=== PATIENT | male | born 1960 | race Caucasian/White ===

== ENCOUNTER 2021-12-03 09:32 | Emergency (ER) | payer BC ==
[2021-12-03] MEDS ORDERED: MORPHINE 4 MG/ML SYR ONE (09:58)
[2021-12-03] MEDS ORDERED: NA CHLORIDE 0.9% 1,000 ML ONE (09:58)
[2021-12-03] MEDS ORDERED: ONDANSETRON 4 MG/2 ML VIAL ONE (09:58)
[2021-12-03 10:20] LABS: Absolute Lymphocytes (CBC) 1.1 K/uL (0.7-4.9); Hematocrit 47.4 % (39.6-49.0); Lymphocytes % 34.8 % (15.3-44.8); MCV 83.8 fL (80-100); MPV 7.9 fL (7.6-11.3); RBC Red Blood Cell Count 5.65 M/uL (4.33-5.43)
[2021-12-03 10:23] LABS: SARS-CoV-2 Antigen Rapid Res Negative (Negative)
[2021-12-03 10:35] LABS: Albumin 3.9 g/dL (3.4-5.0); Bilirubin Total 0.4 mg/dL (0.2-1.0); Potassium 3.9 mmol/L (3.5-5.1); Protein, Total 7.1 g/dL (6.4-8.2)
[2021-12-03 10:52] LABS: Urine Blood Negative (Negative); Urine Glucose Negative (Negative); Urine Protein Negative (Negative)
[2021-12-03 11:12] LABS: Urine Bacteria None Seen /HPF (<20); Urine RBC <5 /HPF (None Seen)
--- NOTE | 2021-12-03 11:12 | RAD REPORT ---
EXAM DESCRIPTION: CT - Abdomen Pelvis W Contrast - 12/03/2021 10:56 am CLINICAL HISTORY: Abdominal pain, acute, nonlocalized COMPARISON: No comparisons TECHNIQUE: Biphasic, helical CT imaging of the abdomen and pelvis was performed following 100 ml non -ionic IV contrast. No oral contrast was administered. All CT scans are performed using dose optimization technique as appropriate and may include automated exposure control or mA/KV adjustment according to patient size. FINDINGS: No suspicious findings in the lung bases. The liver, spleen, and pancreas show no suspicious findings. Gallbladder and biliary tree are also wi thout suspicious finding. Symmetric renal function is seen with no hydronephrosis or suspicious renal mass. No pyelonephritis o r acute parenchymal process. No bladder abnormalities. No adrenal abnormalities. Minimal thickening of the distal most esophagus possibly part of a minimal hiatal hernia. No gastric wall thickening, edema or mass. No acute small bowel finding identified. No appendicitis findings are present. There is a large stool volume distending the colon. This runs from cecum to distal rectum. No colon mass identified. No free air, free fluid or inflammatory stranding. No hernia, mass or bulky lymphadenopathy. No suspicious bony findings. IMPRESSION: Constipation pattern with a large stool volume distending the entirety of the colon. No colon wall mass, wall thickening or edema. Remainder the study, as detailed above, without acute or suspicious finding.
--- OUTSIDE RECORDS SUMMARY | 2021-12-03 11:32 | XMS REPORT | Continuity of Care Document ---
:1960 Author Organization [facility] t Address [address] [place] [address] [address] [place] [address] Care Team Providers Name Role Phone Wellington Aly Jr. Primary Care Physician Only, Ang Db Test Attending Clinician Unavailable Makeda Daigle Attending Clinician MAKEDA DAMIAN Attending Clinician Unavailable Lab, Adc Fam Pob I Attending Clinician Unavailable Elizabeth Moreira Attending Clinician ELIZABETH MELARA Attending Clinician Unavailable Payers Payer Name Policy Type Policy Effective Date Expiration Date Sour ce Number [facility] [id number] [facility] [id number] [phone] [id number], [place] [address]XOB/POS Problems This patient has no known problems. Allergies, Adverse Reactions, Alerts Allergy Allergy Status Severity Reaction(s) Onset Inactive Treating Comm ents Source Name Type Date Date Clinician NO KNOWN Drug Active Univers ALLERGIE Class ity of [facility] Social History Social Habit Start Date Stop Date Quantity Comments Source Exposure to Not sure [facility] SARS-CoV-2 (event) [facility] Sex Assigned At [birth year] [facility] 00:00:00 00:00:00 [facility] Smoking Status Start Date Stop Date Source Unknown if ever smoked General acute hospital Medications This patient has no known medications. Procedures This patient has no known procedures. Encounters Start End Encounter Admission Attending Care Care Encounter Source Date/Time Date/Time Type Type Clinicians Facility Department ID 2021-01-01 2021-01-01 Laboratory Only, Ang Db Test [facility] [[email or web address] 1.2.8 [id number] [facility] 10:49:33 10:59:33 Only Makeda [facility] [id number] ity of [place] [id number] Girma as Gerardo?Blea [phone] Mt dical kney [address] [facility] 2021-01-01 2021-01-01 Outpatient R [facility] [id number] Univers 10:45:00 10:45:00 [id number] [facility] 2021-01-01 2021-01-01 [facility] [id number] Univers 10:45:00 10:45:00 [facility] 2020-07-25 2020-07-25 Laboratory Lab, Adc Fam Pob I [facility] [[email or web address] 1.2. [id number] Univers 14:47:00 15:07:00 Only Elizabeth [facility] [id number] [facility]y of [place] [id number] Girma as Professio [phone] [facility] winnie becerra [address] [facility] 2020-07-25 2020-07-25 Outpatient R EDEN [facility] [id number] Univers 15:00:00 15:00:00 ELIZABETH [facility] 2020-07-24 2020-07-24 Outpatient [facility] [id number] Univers 15:00:00 15:00:00 [id number] [facility] Results This patient has no known results.
[2021-12-03] MEDS ORDERED: MAGNESIUM CITRATE 300 ML BOT ONE (12:03)
[2021-12-03 16:40] VITALS: TEMP 98.1
[2021-12-03 16:49] VITALS: BP 125/76; O2SAT 97
--- NOTE | 2021-12-04 10:13 | ER ---
Nurse's Notes [facility] Name: Deepak Blank Age: 61 yrs Sex: Male : 1960 Arrival Date: 12/03/2021 Time: 09:36 Bed 23 Private MD: Diagnosis: Constipation Presentation: 12/03 09:37 Chief complaint: Patient states: constipation, abdominal pain. Coronavirus screen: nance Vaccine status: Patient reports being unvaccinated. Ebola Screen: Patient denies travel to an Ebola-affected area in the 21 days before illness onset. Initial Sepsis Screen: Does the patient meet any 2 criteria? No. Patient's initial sepsis screen is negative. Does the patient have a suspected source of infection? No. Patient's initial sepsis screen is negative. Risk Assessment: Do you want to hurt yourself or someone else? Patient reports no desire to harm self or others. Onset of symptoms was December 02, 2021. 09:37 Method Of Arrival: EMS: [facility] 09:37 Acuity: JORDY 3 nance Triage Assessment: 09:39 General: Appears in no apparent distress. Behavior is calm, cooperative. Pain: nance Complains of pain in abdomen. Historical: - Allergies: 09:39 No Known Allergies; nance - Immunization history:: Adult Immunizations up to date. - Social history:: Smoking status: Patient denies any tobacco usage or history of. Screenin:40 Abuse screen: Denies threats or abuse. Denies injuries from another. Nutritional nance screening: No deficits noted. Tuberculosis screening: No symptoms or risk factors identified. Fall Risk None identified. Assessment: 09:39 General: Appears in no apparent distress. Behavior is calm, cooperative. Pain: nance Complains of pain in abdomen. GI: Bowel sounds diminished in right lower quadrant and left lower quadrant Abdomen is tender to palpation X 4 quads. Guarding noted X 4 quads. Reports constipation, Pain is 9 out of 10 on a pain scale. Vital Signs: 09:37 BP 186 / 89; Pulse 70; Resp 19; Temp 98.1; Pulse Ox 100% ; Weight 72.57 kg; Height 5 nance ft. 10 in. (177.80 cm); 11:41 BP 135 / 85; Pulse 62; Resp 17; Pulse Ox 98% on R/A; nance 13:50 BP 125 / 76; Pulse 60; Resp 17; Pulse Ox 97% on R/A; nance 09:37 Body Mass Index 22.96 (72.57 kg, 177.80 cm) nance ED Course: 09:36 Patient arrived in ED. lilliana 09:36 Bowen Larry MD is Attending Physician. lilliana 09:37 Lalita Gunn, RN is Primary Nurse. nance 09:39 Triage completed. nance 09:39 [facility] 09:39 Arm band placed on. nance 09:40 Patient has correct armband on for positive identification. Bed in low position. nance 09:40 No provider procedures requiring assistance completed. nance 09:53 Initial lab(s) drawn, by ks, sent to lab. Inserted saline lock: 20 gauge in right dh3 forearm, using aseptic technique. Blood collected. 10:51 Urine Microscopic Only Sent. nance 10:58 CT Abd/Pelvis - IV Contrast Only In Process Unspecified. EDMS 15:08 IV discontinued, intact, Pressure dressing applied. nance Administered Medications: 10:03 Drug: NS 0.9% 1000 ml Route: IV; Rate: 1 bolus; Site: right antecubital; nance 10:03 Drug: Zofran (Ondansetron) 4 mg Route: IVP; Site: right antecubital; nance 10:03 Follow up: Response: No adverse reaction nance 10:03 Drug: morphine 4 mg Route: IVP; Infused Over: 4 mins; Site: right antecubital; nance 10:03 Follow up: Response: No adverse reaction nance 11:56 Drug: Magnesium Citrate Liquid 300 ml Route: PO; nance 11:56 Not Given (Patient Refused): Fleet Enema (sodium phosphate) 133 ml ND once nance Medication: 09:41 VIS not applicable for this client. nance Outcome: 14:45 Discharge ordered by . sunita 15:07 Discharged to home ambulatory. nance 15:07 Condition: good 15:07 Discharge instructions given to patient, Prescriptions given X 1. 15:09 Patient left the ED. nance Signatures: Dispatcher [employer] EDMS Bowen Larry MD MD cha Mickail, Joel, PA PA jmm Herrera, Deanna [facility] Lalita Gunn RN RN nance
--- NOTE | 2021-12-04 10:13 | EDPHYS ---
Physician Documentation [facility] Name: Deepak Blank Age: 61 yrs Sex: Male : 1960 Arrival Date: 12/03/2021 Time: 09:36 Bed 23 Private MD: ED Physician Bowen Larry HPI: 12/03 19:20 This 61 yrs old Male presents to ER via EMS with complaints of Abdominal pain. jm 19:20 The patient presents with abdominal pain. Onset: The symptoms/episode began/occurred jm acutely. The symptoms do not radiate. Associated signs and symptoms: Pertinent negatives: nausea and vomiting, diarrhea. This is a 61-year-old male the presents emerged from with complaints of lower abdominal and suprapubic abdominal pain which began last night. Patient states that he took Imodium to help alleviate his symptoms. Patient states this morning he had a large bowel movement but continued to have ongoing pain.. Historical: - Allergies: 09:39 No Known Allergies; nance - Immunization history:: Adult Immunizations up to date. - Social history:: Smoking status: Patient denies any tobacco usage or history of. ROS: 19:20 Constitutional: Negative for fever, chills, and weight loss, Cardiovascular: Negative jmm for chest pain, palpitations, and edema, Respiratory: Negative for shortness of breath, cough, wheezing, and pleuritic chest pain. 19:20 Abdomen/GI: Positive for abdominal pain. 19:20 All other systems are negative. Exam: 19:20 Constitutional: This is a well developed, well nourished patient who is awake, alert, jmm and in no acute distress. Head/Face: atraumatic. Eyes: EOMI, no conjunctival erythema appreciated ENT: Moist Mucus Membranes Neck: Trachea midline, Supple Chest/axilla: Normal chest wall appearance and motion. Cardiovascular: Regular rate and rhythm. No edema appreciated Respiratory: Normal respirations, no respiratory distress appreciated 19:20 Back: Normal ROM Skin: General appearance color normal MS/ Extremity: Moves all extremities, no obvious deformities appreciated, no edema noted to the lower extremities Neuro: Awake and alert Psych: Behavior is normal, Mood is normal, Patient is cooperative and pleasant 19:20 Abdomen/GI: Inspection: abdomen appears normal, Bowel sounds: normal, Palpation: soft, mild abdominal tenderness, in the suprapubic area and right lower quadrant. Vital Signs: 09:37 BP 186 / 89; Pulse 70; Resp 19; Temp 98.1; Pulse Ox 100% ; Weight 72.57 kg; Height 5 nance ft. 10 in. (177.80 cm); 11:41 BP 135 / 85; Pulse 62; Resp 17; Pulse Ox 98% on R/A; nance 13:50 BP 125 / 76; Pulse 60; Resp 17; Pulse Ox 97% on R/A; nance 09:37 Body Mass Index 22.96 (72.57 kg, 177.80 cm) nance MDM: 09:[address] [facility] 14:43 Data reviewed: vital signs, nurses notes. Counseling: I had a detailed discussion with sunita the patient and/or guardian regarding: the historical points, exam findings, and any diagnostic results supporting the discharge/admit diagnosis, the need for outpatient follow up, to return to the emergency department if symptoms worsen or persist or if there are any questions or concerns that arise at home. 12/03 09:38 Order name: CBC with Diff; Complete Time: 10:22 [facility] 12/03 09:38 Order name: CMP; Complete Time: 10:42 [facility] 12/03 09:38 Order name: Lipase; Complete Time: 10:42 [facility] 12/03 09:38 Order name: Urine Microscopic Only; Complete Time: 11:15 [facility] 12/03 09:39 Order name: SARS RAPID; Complete Time: 10:25 [facility] 12/03 10:53 Order name: Urine Dipstick-Ancillary; Complete Time: 10:54 [facility] 12/03 09:38 Order name: CT Abd/Pelvis - IV Contrast Only; Complete Time: 11:15 [facility] 12/03 09:38 Order name: IV Saline Lock; Complete Time: 09:59 [facility] 12/03 09:38 Order name: Labs collected and sent; Complete Time: 09:59 [facility] 12/03 09:38 Order name: Urine Dipstick-Ancillary (obtain specimen); Complete Time: 10:51 [facility] Administered Medications: 10:03 Drug: NS 0.9% 1000 ml Route: IV; Rate: 1 bolus; Site: right antecubital; nance 10:03 Drug: Zofran (Ondansetron) 4 mg Route: IVP; Site: right antecubital; nance 10:03 Follow up: Response: No adverse reaction nance 10:03 Drug: morphine 4 mg Route: IVP; Infused Over: 4 mins; Site: right antecubital; nance 10:03 Follow up: Response: No adverse reaction nance 11:56 Drug: Magnesium Citrate Liquid 300 ml Route: PO; nance 11:56 Not Given (Patient Refused): Fleet Enema (sodium phosphate) 133 ml NE once nance Disposition Summary: 12/03/21 14:45 Discharge Ordered Location: Home [facility] Condition: Stable [facility] Diagnosis - Constipation [facility] Followup: [facility] - With: Private Physician - When: 2 - 3 days - Reason: Recheck today's complaints, Continuance of care, Re-evaluation by your physician Discharge Instructions: - Discharge Summary Sheet [facility] - Constipation, Adult [facility] Forms: - Medication Reconciliation Form [facility] - Thank You Letter [facility] - Antibiotic Education [facility] - Prescription Opioid Use [facility] Prescriptions: - Lactulose 10 gram/15 mL Oral Solution - take 30 milliliters by ORAL route once daily; 300 milliliter; Refills: 0, [facility] Product Selection Permitted Signatures: Dispatcher [employer] Bowen Mora MD MD cha Mickail, Joel, PA PA [facility] Lalita Gunn RN RN nance
== END 2021-12-03 15:09 | disposition home or self-care (01) ==
LOC: ER 09:32
DX: K59.00 Constipation, unspecified (principal); Z20.822 Contact with and (suspected) exposure to COVID-19
CPT/HCPCS: 85025; 36415; 83690; 80053; 74177; 87811; Q9967; J7030; J2405; 81003; 81015; 96374; 96375; 99284